=== PATIENT | male | born 1990 | race Two or more races ===

== ENCOUNTER 2020-12-28 19:59 | Emergency (ER) | payer MEDICAID ==
[~2020-12-28] VITALS: Ht 177.8 cm; Wt 106.6 kg
--- NOTE | 2020-12-28 20:15 | NUR ---
bibra 58 for epigastric pain since yesterday +NV. was seen at [facility], treated for "low potassium", po zofran given FLUTE GRINDER. to er bed 7, Marilyn RIVERS at bedside for eval
[2020-12-28] MEDS ORDERED: ASPIRIN 81 MG TAB.CHEW ONE (20:27)
[2020-12-28] MEDS ORDERED: PANTOPRAZOLE 40 MG VIAL ONE (20:27)
[2020-12-28] MEDS ORDERED: MORPHINE SULFATE INJ 4 MG/ML DISP.SYRIN ONE (20:27)
[2020-12-28] MEDS ORDERED: ONDANSETRON HCL/PF 4 MG/2 ML VIAL ONE (20:27)
[2020-12-28] MEDS ORDERED: ASPIRIN 81 MG TAB.CHEW PO ONE (20:30)
[2020-12-28] MEDS ORDERED: ONDANSETRON HCL/PF 4 MG/2 ML VIAL IVP ONE (20:30)
[2020-12-28] MEDS ORDERED: PANTOPRAZOLE 40 MG VIAL IV ONE (20:30)
[2020-12-28] MEDS ORDERED: IV NS 0.9% 1,000 ML BAG IV ONE (20:30)
[2020-12-28] MEDS ORDERED: MORPHINE SULFATE INJ 2 MG/ML DISP.SYRIN IV ONE (20:30)
--- NOTE | 2020-12-28 20:45 | NUR ---
tech at bedside for US
[2020-12-28 20:51] LABS: BASOPHILS % (AUTO) 0.2 % (0.0-2.0); EOSINOPHILS % (AUTO) 0.2 % (0.0-6.0); HEMATOCRIT 46 % (39-51); HEMOGLOBIN 15.7 g/dL (13.5-17.5); LYMPHOCYTES # (AUTO) 1.7 /CMM (0.8-4.8); MEAN CORPUSCULAR HGB CONC 34 g/dl (31.0-36.0); MEAN CORPUSCULAR VOLUME 92 fL (80-96); MONOCYTES # (AUTO) 0.9 /CMM (0.1-1.30); MONOCYTES % (AUTO) 7.9 % (2.0-12.0); NEUTROPHILS # (AUTO) 9.2 /CMM (1.8-8.9); NEUTROPHILS % (AUTO) 77.7 % (43.0-81.0); PLATELET COUNT (AUTO) 351 /CMM (150-450); RED BLOOD CELL COUNT(AUTO) 4.96 MIL/uL (4.5-6.0); WHITE BLOOD COUNT (AUTO) 11.8 K/uL (4.3-11.0)
[2020-12-28 20:56] LABS: CALCIUM, SERUM 9.9 mg/dL (8.5-10.1); CARBON DIOXIDE 26 mmol/L (21-32); CHLORIDE 99 mmol/L (98-107); CREATININE 1.5 mg/dL (0.6-1.3); GLUCOSE 130 mg/dL (74-106); POTASSIUM 3.4 mmol/L (3.5-5.1); SODIUM SERUM 136 mmol/L (136-145); UREA NITROGEN, BLOOD 19 mg/dL (7-18)
[2020-12-28 21:02] LABS: ALANINE AMINOTRANSFERASE 51 U/L (12-78); ALBUMIN 4.2 g/dL (3.4-5.0); ALKALINE PHOSPHATASE 80 U/L (46-116); ASPARTATE AMINOTRANSFERASE 30 U/L (15-37); BILIRUBIN,DIRECT 0.4 mg/dL (0.0-0.2); BILIRUBIN,TOTAL 1.6 mg/dL (0.2-1.0); LIPASE 103 U/L (73-393); TOTAL PROTEIN, SERUM 8.8 g/dL (6.4-8.2)
--- NOTE | 2020-12-28 21:12 | NUR ---
tech at bedside for xray
[2020-12-28] MEDS ORDERED: LIDOCAINE VISCOUS 2% UD 15 ML UDC MM ONE (22:30)
[2020-12-28] MEDS ORDERED: MAG HYDROX/AL HYDROX/SIMETH 30 ML UDC PO ONE (22:30)
[2020-12-28] MEDS ORDERED: ONDA4TAB5 PO (22:33)
[2020-12-28] MEDS ORDERED: LIDOCAINE VISCOUS 2% UD 15 ML UDC ONE (22:35)
[2020-12-28] MEDS ORDERED: MAG HYDROX/AL HYDROX/SIMETH 30 ML UDC ONE (22:35)
--- NOTE | 2020-12-28 22:43 | NUR ---
Patient discharged to home in stable condition. Written and verbal after care instructions given. Patient verbalizes understanding of instruction.
[2020-12-28 22:44] VITALS: BP 137/88
== END 2020-12-28 22:44 | disposition home or self-care (01) ==
LOC: ER 20:02
DX: R11.2 Nausea with vomiting, unspecified (principal); F14.10 Cocaine abuse, uncomplicated; F10.10 Alcohol abuse, uncomplicated; R10.13 Epigastric pain; E86.0 Dehydration; R94.31 Abnormal electrocardiogram [ECG] [EKG]; E87.6 Hypokalemia; N28.9 Disorder of kidney and ureter, unspecified; E80.7 Disorder of bilirubin metabolism, unspecified; K76.0 Fatty (change of) liver, not elsewhere classified; R00.0 Tachycardia, unspecified; K21.9 Gastro-esophageal reflux disease without esophagitis; Y90.0 Blood alcohol level of less than 20 mg/100 ml
CPT/HCPCS: 36415; 71045; 76705; 80048; 80076; 80320; 83690; 84484; 85025; 93005; 96361; 96374; 96375; 99285; C9113; J2270; J2405; J7030; G0480

== ENCOUNTER 2023-01-10 13:34 | Emergency (ER) | payer MEDICAID ==
[~2023-01-10] VITALS: Ht 177.8 cm; Wt 108.9 kg
[~2023-01-10 13:34] MED LIST: ONDA4TAB5 PO
--- NOTE | 2023-01-10 14:13 | NUR ---
Patient AOx4 able to express his concerns. Patient has multiple abrasions, complains of pain. States he saw blood in urine and in stool. Discussed plan of care, patient verbalized agreement.
[2023-01-10] MEDS ORDERED: ONDANSETRON HCL/PF 4 MG/2 ML VIAL IVP ONE (15:00)
[2023-01-10] MEDS ORDERED: IV NS 0.9% 1,000 ML BAG IV ONE (15:00)
[2023-01-10] MEDS ORDERED: HYDROMORPHONE INJ 2 MG/ML DISP.SYRIN IV ONE (15:00)
[2023-01-10] MEDS ORDERED: HYDROMORPHONE 1 MG/1 ML DISP.SYRIN ONE ×2 (15:03→20:55)
[2023-01-10] MEDS ORDERED: ONDANSETRON HCL/PF 4 MG/2 ML VIAL ONE (15:03)
[2023-01-10 15:12] LABS: BASOPHILS % (AUTO) 0.2 % (0.0-2.0); HEMATOCRIT 43 % (39-51); HEMOGLOBIN 14.3 g/dL (13.5-17.5); LYMPHOCYTES # (AUTO) 1.7 K/uL (0.8-4.8); LYMPHOCYTES % (AUTO) 11.1 % (20.0-44.0); MEAN CORPUSCULAR HGB CONC 33 g/dl (31.0-36.0); MEAN CORPUSCULAR VOLUME 92 fL (80-96); MONOCYTES # (AUTO) 1.3 K/uL (0.1-1.30); MONOCYTES % (AUTO) 8.4 % (2.0-12.0); NEUTROPHILS # (AUTO) 12.6 K/uL (1.8-8.9); NEUTROPHILS % (AUTO) 80.3 % (43.0-81.0); PLATELET COUNT (AUTO) 357 K/uL (150-450); WHITE BLOOD COUNT (AUTO) 15.7 K/uL (4.3-11.0)
[2023-01-10 15:39] LABS: CALCIUM, SERUM 9.1 mg/dL (8.5-10.1); CARBON DIOXIDE 26 mmol/L (21-32); CHLORIDE 101 mmol/L (98-107); CREATININE 1.3 mg/dL (0.6-1.3); GLUCOSE 123 mg/dL (74-106); POTASSIUM 3.7 mmol/L (3.5-5.1); SODIUM SERUM 136 mmol/L (136-145); UREA NITROGEN, BLOOD 13 mg/dL (7-18)
[2023-01-10 15:52] LABS: ALANINE AMINOTRANSFERASE 64 U/L (12-78); ALKALINE PHOSPHATASE 72 U/L (46-116); ASPARTATE AMINOTRANSFERASE 170 U/L (15-37); BILIRUBIN,DIRECT 0.2 mg/dL (0.0-0.2); BILIRUBIN,TOTAL 1.3 mg/dL (0.2-1.0); TOTAL PROTEIN, SERUM 7.9 g/dL (6.4-8.2)
[2023-01-10 15:55] LABS: CREATINE KINASE, TOTAL 7876 U/L (39-308)
[2023-01-10 15:58] LABS: ALCOHOL, BLOOD < 3 mg/dL (0-0)
[2023-01-10] MEDS ORDERED: IV NS 0.9% 1,000 ML IV ONE (16:30)
[2023-01-10] MEDS ORDERED: CEPH500C2 PO (16:44)
--- NOTE | 2023-01-10 17:14 | NUR ---
Urine collected, sent to lab
--- NOTE | 2023-01-10 18:06 | NUR ---
COVID Swab collected, sent to lab
[2023-01-10 18:17] LABS: BILIRUBIN,URINE NEGATIVE (NEGATIVE); COLOR,URINE YELLOW (YELLOW); LEUKOCYTE ESTERASE ,URINE NEGATIVE (NEGATIVE); NITRITE, URINE NEGATIVE (NEGATIVE); PROTEIN,URINE NEGATIVE (NEGATIVE); UGLUCOSE NEGATIVE (NEGATIVE); UROBILINOGEN,URINE 0.2 EU/dL (0.2)
[2023-01-10 18:50] LABS: BACTERIA,URINE None seen /HPF (None Seen); SQUAMOUS EPITHELIAL CELL,UR None Seen /HPF (None Seen); WBC,URINE 0-2 /HPF (0-3)
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
[2023-01-10] MEDS ORDERED: CLONIDINE HCL 0.1 MG TABLET ONE (20:23)
--- NOTE | 2023-01-10 20:26 | NUR ---
Clonidine 0.1mg PO given for Bllod Pressure in the 180s. Pt care continue.
[2023-01-10] MEDS ORDERED: HYDROMORPHONE 1 MG/1 ML DISP.SYRIN IV ONE (20:30)
[2023-01-10] MEDS ORDERED: CLONIDINE HCL 0.1 MG TABLET PO ONE (20:30)
--- NOTE | 2023-01-10 20:42 | NUR ---
PT GOT ACCEPTED AT [facility] UNDER CARE OF DR FREY. GOING TO RM: 330-1.REPORT TO BE GIVEN TO [phone] TRANSPORTATION AUTH: [id number]
--- NOTE | 2023-01-10 20:47 | NUR ---
[facility] ETA: 45-60 MIN
--- NOTE | 2023-01-10 20:56 | NUR ---
Pt care continue as Diluadid 0.5mg IVP given for generalizer pain off 06/04. Pt care continue.
--- NOTE | 2023-01-10 21:37 | NUR ---
JANIE SISTER [phone] CALLED FOR UPDATE
[2023-01-10] MEDS ORDERED: hydrALAZINE HCL IV 20 MG VIAL ONE (21:45)
[2023-01-10] MEDS ORDERED: hydrALAZINE HCL IV 20 MG VIAL IV ONE (22:00)
[2023-01-10 22:04] VITALS: BP 144/80
--- NOTE | 2023-01-10 22:05 | NUR ---
Pt is noted off the unit with [facility] to [facility] going to Room 330-[address] Pagan and report given to KEYSHAWN Whitaker calling [phone].
== END 2023-01-10 22:14 | disposition short-term general hospital (02) ==
LOC: ER 13:42
DX: S80.212A Abrasion, left knee, initial encounter (principal); S80.211A Abrasion, right knee, initial encounter; S40.212A Abrasion of left shoulder, initial encounter; S40.211A Abrasion of right shoulder, initial encounter; S90.812A Abrasion, left foot, initial encounter; S90.811A Abrasion, right foot, initial encounter; S30.811A Abrasion of abdominal wall, initial encounter; M62.82 Rhabdomyolysis; R51.9 Headache, unspecified; Z20.822 Contact with and (suspected) exposure to COVID-19; Z79.899 Other long term (current) drug therapy; Y09 Assault by unspecified means; Y93.89 Activity, other specified; Y92.89 Other specified places as the place of occurrence of the external cause; Y99.8 Other external cause status
CPT/HCPCS: 99291; 96374; 96361; 96375; 71045; 96376; 73630; 73590; 71250; 70450; 70486; 74176; 85025; 80048; 82550; 80076; 81001; 36415; 87081; 86850; 82553; 87426; 80320; 80307; J0360; J2405; J7030 ×2; J1170 ×2; C9803; G0480